=== PATIENT | male | born 1980 | race Caucasian/White ===

== ENCOUNTER 2020-01-07 13:06 | Emergency (ER) | payer OTHER, MEDICAID ==
[~2020-01-07] VITALS: Ht 180.3 cm; Wt 77.1 kg
--- NOTE | 2020-01-07 13:06 | NUR ---
QAUN BAI TO ERCathy
[2020-01-07 13:20] VITALS: BP 138/86
--- NOTE | 2020-01-07 13:24 | NUR ---
WAIT AT LOBBY.
--- NOTE | 2020-01-07 14:10 | NUR ---
PT TAKEN TO XRAY VIA WHEELCHAIR
[2020-01-07 14:16] LABS: BASOPHILS # (AUTO) 0.1 K/uL (0.00-0.22); BASOPHILS % (AUTO) 0.6 % (0.0-2.0); EOSINOPHILS # (AUTO) 0.2 K/uL (0-0.4); EOSINOPHILS % (AUTO) 1.7 % (0.0-4.0); HEMATOCRIT 43.6 % (36-52); HEMOGLOBIN 14.6 g/dL (12.0-18.0); LYMPHOCYTES # (AUTO) 1.2 K/uL (2.0-11.5); LYMPHOCYTES % (AUTO) 11.5 % (20.5-51.1); MEAN CORPUSCULAR HEMOGLOBIN 29 pg (27-31); MEAN CORPUSCULAR HGB CONC 33 g/dL (33-37); MEAN CORPUSCULAR VOLUME 87.7 fL (80-94); MONOCYTES # (AUTO) 0.7 K/uL (0.8-1.0); MONOCYTES % (AUTO) 7.3 % (1.7-9.3); NEUTROPHILS % (AUTO) 78.9 % (42.2-75.2); PLATELET COUNT (AUTO) 269 K/uL (140-450); RED BLOOD CELL COUNT(AUTO) 4.97 MIL/uL (4.20-6.10); RED CELL DISTRIBUTION WIDTH 13.4 % (11.6-13.7); WHITE BLOOD COUNT (AUTO) 10.2 K/uL (4.8-10.8)
--- NOTE | 2020-01-07 14:30 | NUR ---
40 Y/O MALE C/O SOB/N/V STARTING TODAY. PT STATES HE IS HOMELESS AND HAS BEEN OUTSIDE, AND BEGAN FEELING SOB, "HAD A FEW EPISODES" OF N/V. RESP EVEN AND UNLABORED. OSCAR SOUNDS CLEAR IN BILAT LOBES. SP02 100% RA. ABD SOFT/NON DISTENDED, BOWEL SOUNDS NORMOACTIVE IN ALL QUADRANTS. PT DENIES ANY FEVER. HAS NOT TAKEN ANY MEDICATION TODAY.
[2020-01-07 14:36] LABS: ALBUMIN 4.4 g/dL (3.4-5.0); ANION GAP 16.1 (8-16); CREATININE 0.9 mg/dL (0.6-1.3); POTASSIUM 4.1 mmol/L (3.5-5.1); TOTAL BILIRUBIN 0.8 mg/dL (0.0-1.0)
[2020-01-07 15:42] VITALS: BP 132/78
--- NOTE | 2020-01-07 15:42 | NUR ---
Patient discharged with v/s stable. Written and verbal after care instructions given and explained. Patient verbalized understanding. Ambulatory with steady gait. All questions addressed prior to discharge. Advised to follow up with PMD.
== END 2020-01-07 15:42 | disposition home or self-care (01) ==
LOC: MED 13:06
DX: T67.5XXA Heat exhaustion, unspecified, initial encounter (principal); F17.290 Nicotine dependence, other tobacco product, uncomplicated; F14.90 Cocaine use, unspecified, uncomplicated; F12.90 Cannabis use, unspecified, uncomplicated; F15.90 Other stimulant use, unspecified, uncomplicated; X30.XXXA Exposure to excessive natural heat, initial encounter; Y93.89 Activity, other specified; Y92.89 Other specified places as the place of occurrence of the external cause; Y99.8 Other external cause status
CPT/HCPCS: 36415; 71045; 80053; 85025; 93005; 99285

== ENCOUNTER 2020-01-07 17:28 | Emergency (ER) | payer OTHER, MEDICAID ==
[~2020-01-07] VITALS: Ht 180.3 cm; Wt 77.1 kg
--- NOTE | 2020-01-07 17:28 | NUR ---
PT VITALIY BAI TO [facility]
--- NOTE | 2020-01-07 17:30 | NUR ---
PT STATES "I JUST WANT A ROOM TO SLEEP IN"
[2020-01-07 18:40] VITALS: BP 139/101
--- NOTE | 2020-01-07 18:43 | NUR ---
COVID SWAB DONE.
--- NOTE | 2020-01-07 18:44 | NUR ---
HOMELESS . C/O COUGH , LEFT CHEST PAIN X 2 DAYS. SEEN HERE AT 1352 TODAY. MED HX: DENIES
[2020-01-07 20:13] LABS: BASOPHILS # (AUTO) 0.1 K/uL (0.00-0.22); BASOPHILS % (AUTO) 0.7 % (0.0-2.0); EOSINOPHILS # (AUTO) 0.1 K/uL (0-0.4); EOSINOPHILS % (AUTO) 1.6 % (0.0-4.0); HEMATOCRIT 45.6 % (36-52); HEMOGLOBIN 15.1 g/dL (12.0-18.0); LYMPHOCYTES # (AUTO) 1.8 K/uL (2.0-11.5); LYMPHOCYTES % (AUTO) 20.4 % (20.5-51.1); MEAN CORPUSCULAR HEMOGLOBIN 29 pg (27-31); MEAN CORPUSCULAR HGB CONC 33 g/dL (33-37); MEAN CORPUSCULAR VOLUME 87.3 fL (80-94); MONOCYTES # (AUTO) 0.6 K/uL (0.8-1.0); NEUTROPHILS # (AUTO) 6.3 K/uL (1.8-7.7); NEUTROPHILS % (AUTO) 70.3 % (42.2-75.2); PLATELET COUNT (AUTO) 280 K/uL (140-450); RED BLOOD CELL COUNT(AUTO) 5.22 MIL/uL (4.20-6.10); RED CELL DISTRIBUTION WIDTH 13.7 % (11.6-13.7); WHITE BLOOD COUNT (AUTO) 8.9 K/uL (4.8-10.8)
[2020-01-07 21:27] LABS: ALBUMIN 4.6 g/dL (3.4-5.0); ANION GAP 18.8 (8-16); CARBON DIOXIDE 24.5 mmol/L (21-32); POTASSIUM 4.3 mmol/L (3.5-5.1); TOTAL BILIRUBIN 1.1 mg/dL (0.0-1.0)
[2020-01-07 21:42] VITALS: BP 139/101
--- NOTE | 2020-01-07 21:42 | NUR ---
Patient discharged with v/s stable. Written and verbal after care instructions given and explained. Patient alert, oriented and verbalized understanding of instructions. Ambulatory with steady gait. All questions addressed prior to discharge. ID band removed. Patient advised to follow up with PMD. Rx of RELION VENTOLIN HFA INHALER given. Patient educated on indication of medication including possible reaction and side effects. Opportunity to ask questions provided and answered. GAVE PT INFO FOR 24HR PHARMACY
--- NOTE | 2020-01-09 16:52 | NUR ---
COVID RESULTS RECEIVED FROM LAB. COVID RESULTS POSITIVE. COPY OF RESULT PLACED IN INFECTION CONTROL'S MAILBOX.
== END 2020-01-07 21:42 | disposition home or self-care (01) ==
LOC: MED 17:28
DX: J45.909 Unspecified asthma, uncomplicated (principal)
CPT/HCPCS: 36415; 71045; 80053; 84484; 85025; 99285; U0003; 99284